=== PATIENT | male | born 1995 | race African-American/Black ===

== ENCOUNTER 2017-01-03 16:53 | Emergency (ER) | payer OTHER ==
--- NOTE | 2017-01-03 18:03 | RADIOLOGY REPORT (SQ) ---
EXAM DESCRIPTION: CHEST PA/LAT COMPLETED DATE/TIME: 01/03/2017 5:56 pm REASON FOR STUDY: crush injury 12/28 COMPARISON: None. EXAM PARAMETERS: NUMBER OF VIEWS: two views TECHNIQUE: Digital Frontal and Lateral radiographic views of the chest acquired. RADIATION DOSE: NA LIMITATIONS: none FINDINGS: LUNGS AND PLEURA: No opacities, masses or pneumothorax. No pleural effusion. MEDIASTINUM AND HILAR STRUCTURES: No masses or contour abnormalities. HEART AND VASCULAR STRUCTURES: Heart normal size. No evidence for failure. BONES: No acute findings. HARDWARE: None in the chest. OTHER: No other significant finding. IMPRESSION: NO SIGNIFICANT RADIOGRAPHIC FINDING IN THE CHEST. TECHNICAL DOCUMENTATION: JOB ID: [id number] [employer]- All Rights Reserved
--- NOTE | 2017-01-03 18:04 | RADIOLOGY REPORT (SQ) ---
EXAM DESCRIPTION: STERNUM COMPLETED DATE/TIME: 01/03/2017 5:56 pm REASON FOR STUDY: crush injury on 12/28 COMPARISON: None. NUMBER OF VIEWS: Two views. TECHNIQUE: Lateral and AP and/or oblique views of the sternum. LIMITATIONS: None. FINDINGS: There is no acute or significant bone, joint or soft tissue abnormality. OTHER: No other significant finding. IMPRESSION: NEGATIVE STUDY OF THE STERNUM. TECHNICAL DOCUMENTATION: JOB ID: [id number] [employer]- All Rights Reserved
--- NOTE | 2017-01-03 18:04 | RADIOLOGY REPORT (SQ) ---
EXAM DESCRIPTION: WRIST LEFT 3 VIEWS COMPLETED DATE/TIME: 01/03/2017 5:56 pm REASON FOR STUDY: crush injury on 12/28 COMPARISON: None. NUMBER OF VIEWS: Three views. TECHNIQUE: AP, lateral, and oblique radiographic images acquired of the left wrist. LIMITATIONS: None. FINDINGS: MINERALIZATION: Normal. BONES: No acute fracture or dislocation. No worrisome bone lesions. Normal alignment. SOFT TISSUES: No soft tissue swelling. No foreign body. OTHER: No other significant finding. IMPRESSION: NEGATIVE STUDY OF THE LEFT WRIST. NO RADIOGRAPHIC EVIDENCE OF ACUTE INJURY. TECHNICAL DOCUMENTATION: JOB ID: [id number] [employer]- All Rights Reserved
[2017-01-03] MEDS ORDERED: IBUPROFEN 800 MG TABLET PO ONE (18:10)
--- NOTE | 2017-01-03 18:10 | ER Document Report ---
HPI - HPI Patient complains to provider of: wrist and sternum pain Pain Level: 2 Context: Patient is a 21-year-old male who presents emergency department complaining of sternum pain as well as left wrist pain. Patient states that he was helping a friend move on FridayDecember 28 when his friend accidentally let go the couch and it slid and hit him in the chest and then pinned his left hand and wrist to the wall. 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 He states he has not been taking any medication. No previous injuries to this extremity. Regarding his chest pain. He states it is improved. firer watertender to touch able to take deep breaths. Denies any shortness of breath, dyspnea on exertion , cough, chest pain at rest. - CARDIOVASCULAR Cardiovascular: DENIES: Chest pain - DERM Skin Color: Normal Past Medical History - Social History Smoking Status: Never Smoker Chew tobacco use (# tins/day): No Frequency of alcohol use: None Drug Abuse: None Family History: Reviewed & Not Pertinent Patient has suicidal ideation: No Patient has homicidal ideation: No Renal/ Medical History: Denies: Hx Peritoneal Dialysis Vertical Provider Document - CONSTITUTIONAL Agree With Documented VS: Yes Notes: PHYSICAL EXAM GENERAL: Alert, interacts well. NECK: Full range of motion. Supple. Trachea midline. LUNGS: Clear to auscultation bilaterally, no wheezes, rales, or rhonchi. No respiratory distress. Sternum tender with tenderness on the left side. No evidence of crepitus, deformities. HEART: Regular rate and rhythm. No murmurs, gallops, or rubs. ABDOMEN: Soft, nondistended, nontender. No guarding, rebound, or rigidity.. Bowel sounds present in all 4 quadrants. EXTREMITIES: Moves all 4 extremities spontaneously. No edema, radial and dorsalis pedis pulses 2/4 bilaterally. No cyanosis. Nontender to palpation of the left wrist. NEUROLOGICAL: Alert and oriented x4. Normal speech. PSYCH: Normal affect, normal mood. SKIN: Warm, dry, normal turgor. No rashes or lesions noted. - INFECTION CONTROL TRAVEL OUTSIDE OF THE [place] IN LAST 30 DAYS: No - RESPIRATORY O2 Sat by Pulse Oximetry: 96 Course - Re-evaluation Re-evalutation: 01/03/17 20:30 Patient is a 21-year-old male who is hemodynamic stable, no acute distress and afebrile. No evidence of fracture dislocation noted on sternum x-ray or chest x -ray. No evidence of pneumothorax, effusion. Given that patient has been stable throughout the week since his initial injury, CT was not indicated for imaging given the high acuity of traumatic injuries from possible sternum fracture would be more evident however the patient is hemodynamic stable, clinically resting comfortably on the gurney. No evidence of fracture dislocation noted on wrist x-ray. Patient educated on rest, ice as well as elevation to help with his wrist and to take [id number] nonsteroidal anti- inflammatories. Per [facility] protocol and guidelines, this case was discussed with supervising physician Dr. Omar Spencer prior to discharge - Vital Signs Vital signs: Temp Pulse Resp BP Pulse Ox 98.2 F 63 20 144/69 H 96 01/03/17 16:56 01/03/17 16:56 01/03/17 16:56 01/03/17 16:56 01/03/17 16:56 - Diagnostic Test Radiology reviewed: Image reviewed, Reports reviewed Discharge - Discharge Clinical Impression: Chest wall pain Wrist pain Qualifiers: Laterality: left Qualified Code(s): M25.532 - Pain in left wrist Condition: Good Disposition: HOME, SELF-CARE Instructions: Anti-Inflammatory Medication ([facility]), Chest Wall Pain ([facility]), Wrist Sprain ([facility])
[2017-01-03 18:25] VITALS: BP 131/72
== END 2017-01-03 18:23 | disposition home or self-care (01) ==
LOC: ER 16:53
DX: R07.89 Other chest pain (principal); M25.532 Pain in left wrist
CPT/HCPCS: 71020; 71120; 99283

== ENCOUNTER 2017-02-16 15:42 | Emergency (ER) | payer OTHER ==
--- NOTE | 2017-02-16 17:08 | ER Document Report ---
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 denies any penile pain or discharge. denies unprotected sex. no testicular pain, abdominal pain or back pain. no fever TRAVEL OUTSIDE OF THE [place] IN LAST 30 DAYS: No - HPI Patient complains to provider of: Diarrhea Onset: Last week Timing/Duration: Gradual, Persistent Quality of pain: Burning Severity at maximum: Mild Sexual history: Active, Condoms Associated symptoms: None Exacerbated by: Denies Relieved by: Denies Similar symptoms previously: No - Related Data Allergies/Adverse Reactions: No Known Allergies Allergy (Unverified 01/03/17 16:57) Past Medical History - General Information source: Patient - Social History Smoking Status: Never Smoker Chew tobacco use (# tins/day): No Frequency of alcohol use: Occasional Drug Abuse: None Lives with: Family Family History: Reviewed & Not Pertinent - Medical History Medical History: Negative Renal/ Medical History: Denies: Hx Peritoneal Dialysis Surgical Hx: Negative Review of Systems - Review of Systems Constitutional: No symptoms reported EENT: No symptoms reported Cardiovascular: No symptoms reported Respiratory: No symptoms reported Gastrointestinal: No symptoms reported Genitourinary: No symptoms reported Male Genitourinary: No symptoms reported Musculoskeletal: No symptoms reported Skin: No symptoms reported Hematologic/Lymphatic: No symptoms reported Neurological/Psychological: No symptoms reported Physical Exam - Vital signs Vitals: Temp Pulse Resp BP Pulse Ox 98.4 F 64 18 112/60 98 02/16/17 15:53 02/16/17 15:53 02/16/17 15:53 02/16/17 15:53 02/16/17 15:53 Interpretation: Normal - General General appearance: Appears well, Alert - HEENT Head: Normocephalic, Atraumatic Eyes: Normal Pupils: PERRL - Respiratory Respiratory status: No respiratory distress Chest status: Nontender Breath sounds: Normal Chest palpation: Normal - Cardiovascular Rhythm: Regular Heart sounds: Normal auscultation Murmur: No - Abdominal Inspection: Normal Distension: No distension Bowel sounds: Normal Tenderness: Nontender Organomegaly: No organomegaly - Back Back: Normal, Nontender - Extremities General upper extremity: Normal inspection, Nontender, Normal color, Normal ROM , Normal temperature General lower extremity: Normal inspection, Nontender, Normal color, Normal ROM , Normal temperature, Normal weight bearing. No: Stu's sign - Neurological Neuro grossly intact: Yes Cognition: Normal Orientation: AAOx4 [place] Coma Scale Eye Opening: Spontaneous [place] Coma Scale Verbal: Oriented [place] Coma Scale Motor: Obeys Commands [place] Coma Scale Total: 15 Speech: Normal Motor strength normal: LUE, RUE, LLE, RLE Sensory: Normal - Psychological Associated symptoms: Normal affect, Normal mood - Skin Skin Temperature: Warm Skin Moisture: Dry Skin Color: Normal Course - Re-evaluation Re-evalutation: 02/16/17 17:39 urinalysis showing large leukocytes. will treat with antibiotic and send urine culture. pt does not want to wait for GC/chlam results. I will call those results to him. pt stable for discharge - Vital Signs Vital signs: Temp Pulse Resp BP Pulse Ox 98.5 F 50 L 18 116/60 98 02/16/17 17:56 02/16/17 17:56 02/16/17 17:56 02/16/17 17:56 02/16/17 17:56 - Laboratory Laboratory results interpreted by me: 02/16/17 16:00 Ur Leukocyte Esterase LARGE H Discharge - Discharge Clinical Impression: UTI (urinary tract infection) Qualifiers: Urinary tract infection type: acute cystitis Hematuria presence: without hematuria Qualified Code(s): N30.00 - Acute cystitis without hematuria Condition: Stable Disposition: HOME, SELF-CARE Instructions: Antibiotic Therapy ([facility]), Urinary Tract Infection ([facility]) Additional Instructions: You have a urinary tracti infection Take all your antibiotic as prescribed Urine cultures are pending we will call you with results and any further treatment is needed Prescriptions: Ciprofloxacin HCl [Cipro 500 mg Tablet] 500 mg PO BID #14 tablet
[2017-02-16 17:09] LABS: APPEARANCE,URINE SLIGHTLY-CLOUDY; BILIRUBIN,URINE NEGATIVE (NEGATIVE); GLUCOSE, URINE NEGATIVE (NEGATIVE); KETONES,URINE NEGATIVE (NEGATIVE); LEUKOCYTE ESTERASE,URINE LARGE (NEGATIVE); NITRITE,URINE NEGATIVE (NEGATIVE); PROTEIN,URINE NEGATIVE (NEGATIVE); URINE SPECIFIC GRAVITY 1.005; UROBILINOGEN,URINE NEGATIVE mg/dL (<2.0)
[2017-02-16 17:56] VITALS: BP 116/60
[2017-02-16 18:34] LABS: CHLAM PCR NOT DETECTED (NOT DETECT)
== END 2017-02-16 17:56 | disposition home or self-care (01) ==
LOC: ER 15:42
DX: N30.00 Acute cystitis without hematuria (principal)
CPT/HCPCS: 81001; 87491; 87591; 99283